=== PATIENT | male | born 1975 | race Caucasian/White ===

== ENCOUNTER 2016-06-02 21:28 | Observation (INO) | payer MEDICARE ==
[~2016-06-02] VITALS: Ht 157.5 cm; Wt 86.7 kg
[~2016-06-02 21:28] MED LIST: ASPI-496 PO; ATOR40TA78 PO; CARV25TA12 PO; DIGO125T10 PO; DOFE500C PO; FURO-93 PO; HYDR-3144 PO; LISI-170 PO; SACU1TAB PO; SPIR25TA3 PO; SPIR50TA2 PO; TRAM50TA2 PO; TRAZ100T15 PO; WARF10TA6 PO; [UNRECOGNIZED DRUG - OTHER] PO; oxygen INH
[2016-06-02] MEDS ORDERED: ONDANSETRON 2MG/ML, 2ML IVPush ONE (22:00)
[2016-06-02] MEDS ORDERED: ASPIRIN 81 MG TABLET CHEW PO ONE (22:00)
[2016-06-02] MEDS ORDERED: ONDANSETRON 2MG/ML, 2ML ONE (22:14)
[2016-06-02] MEDS ORDERED: MORPHINE SULFATE 4 MG/ML, 1ML ONE ×2 (22:14→23:38)
[2016-06-02] MEDS: MORPHINE SULFATE 4 MG/ML, 1ML IVPush PRN ×2 (22:24→23:42)
[2016-06-02 22:43] LABS: BLOOD UREA NITROGEN 13 mg/dL (7-18)
[2016-06-02 22:49] LABS: IS PT STATUS REG ER OR PRE ER? YES
[2016-06-02 23:16] LABS: HEMOGLOBIN 11.8 g/dL (13.7-18.0)
[2016-06-02] MEDS ORDERED: SODIUM CHLORIDE 0.9% 1,000 ML IV ONE (23:33)
[2016-06-03] MEDS ORDERED: ONDANSETRON 2MG/ML, 2ML IVPush PRN
[2016-06-03] MEDS ORDERED: MORPHINE SULFATE 4 MG/ML, 1ML IVPush PRN
[2016-06-03] MEDS ORDERED: DIGOXIN 0.125 MG TABLET PO SCH (00:30)
[2016-06-03] MEDS ORDERED: BISACODYL 10 MG SUPP PR PRN (00:30)
[2016-06-03] MEDS ORDERED: POLYETHYLENE GLYCOL 17 GM PACKET PO PRN (00:30)
[2016-06-03] MEDS ORDERED: TRAZODONE 50MG TABLET PO PRN (00:30)
[2016-06-03] MEDS ORDERED: NICOTINE 14MG/24 HR PATCH.TD24 TD SCH (00:30)
[2016-06-03] MEDS ORDERED: DOCUSATE 100 MG CAPSULE PO PRN (00:30)
[2016-06-03] MEDS ORDERED: ATORVASTATIN 40 MG TABLET PO SCH ×2 (00:30→21:00)
[2016-06-03] MEDS ORDERED: LABETALOL 5MG/ML, 20ML IV PRN (00:30)
[2016-06-03 00:42] VITALS: BP 124/78
[2016-06-03] MEDS ORDERED: TRAZ100T15 PO (01:23)
[2016-06-03 02:28] VITALS: BP 124/78
[2016-06-03] MEDS: ENOXAPARIN 80 MG/0.8 ML SQ SCH ×2 (02:42→15:37)
[2016-06-03 06:44] LABS: IS PT STATUS REG ER OR PRE ER? NO
[2016-06-03 08:25] VITALS: BP 103/68
[2016-06-03] MEDS ORDERED: ASPIRIN 81 MG TABLET CHEW PO SCH (09:00)
[2016-06-03] MEDS ORDERED: SPIRONOLACTONE 25 MG TABLET PO SCH (09:00)
[2016-06-03] MEDS ORDERED: SACUBITRIL HOMEMEDPO SCH (09:00)
[2016-06-03] MEDS ORDERED: VALSARTAN HOMEMEDPO SCH (09:00)
[2016-06-03] MEDS ORDERED: FUROSEMIDE 40 MG TABLET PO SCH (09:00)
[2016-06-03] MEDS ORDERED: DOFETILIDE 125 MCG CAPSULE PO SCH (09:00)
[2016-06-03] MEDS ORDERED: CARVEDILOL 3.125 MG TABLET PO SCH (09:00)
[2016-06-03] MEDS ORDERED: LISINOPRIL 20 MG TABLET PO SCH (09:00)
[2016-06-03] MEDS ORDERED: REGADENOSON 0.4 MG/5 ML SYRINGE ONE ×2 (09:21→09:23)
[2016-06-03 11:21] LABS: IS PT STATUS REG ER OR PRE ER? NO
[2016-06-03] MEDS ORDERED: ACETAMINOPHEN 325 MG TABLET ONE (13:27)
[2016-06-03 16:13] VITALS: BP 108/72
[2016-06-03] MEDS ORDERED: ENOX80SY5 SQ (16:33)
[2016-06-03] MEDS ORDERED: WARFARIN 5 MG TABLET PO-COUM SCH (18:00)
== END 2016-06-03 18:04 | disposition home or self-care (01) ==
LOC: ED 22:44 → EDIP 23:33 → INTOOBSV 23:33 → 5SO 06-03 00:29
PROVIDERS: ADMIT Internal Medicine; ATTEND Internal Medicine
DX: R07.89 Other chest pain (principal); I11.0 Hypertensive heart disease with heart failure; I50.42 Chronic combined systolic (congestive) and diastolic (congestive) heart failure; I25.10 Atherosclerotic heart disease of native coronary artery without angina pectoris; I34.0 Nonrheumatic mitral (valve) insufficiency; E78.5 Hyperlipidemia, unspecified; E88.09 Other disorders of plasma-protein metabolism, not elsewhere classified; Z72.0 Tobacco use; Z86.711 Personal history of pulmonary embolism; Z91.14 Patient's other noncompliance with medication regimen; Z76.5 Malingerer [conscious simulation]; Z95.2 Presence of prosthetic heart valve
CPT/HCPCS: 36415; 71010; 78452; 80048; 80162; 82040; 83880; 84484; 85025; 85379; 85610; 93005; 93017; 96372; 96374; 96375; 96376; 99285; A9502; C9898; G0378; J1650; J2405; J2785

== ENCOUNTER 2017-01-03 22:04 | Inpatient (IN) | payer MEDICARE ==
[~2017-01-03] VITALS: Ht 157.5 cm; Wt 86.7 kg
[~2017-01-03 22:04] MED LIST changes: +ENOX80SY5 SQ; -HYDR-3144 PO; +HYDR-3245 PO
[2017-01-03] MEDS ORDERED: BUME1TAB21 PO (22:33)
[2017-01-03] MEDS ORDERED: ASPIRIN 81 MG TABLET CHEW PO ONE (23:00)
[2017-01-03] MEDS ORDERED: ONDANSETRON 2MG/ML, 2ML IVPush ONE (23:00)
[2017-01-03] MEDS ORDERED: morphine SULFATE 10 MG/ML, 1ML ONE ×2 (23:01→23:56)
[2017-01-03] MEDS ORDERED: ASPIRIN 81 MG TABLET CHEW ONE (23:01)
[2017-01-03] MEDS ORDERED: ONDANSETRON 2MG/ML, 2ML ONE (23:01)
[2017-01-03 23:08] LABS: HEMATOCRIT 36.2 % (39.2-51.8); WHITE BLOOD COUNT 7.4 x10^3/uL (3.4-10)
[2017-01-03] MEDS: MORPHINE SULFATE 4 MG/ML, 1ML IVPush PRN (23:10)
[2017-01-03 23:14] LABS: BLOOD UREA NITROGEN 25 mg/dL (7-18)
[2017-01-03 23:32] LABS: IS PT STATUS REG ER OR PRE ER? YES
[2017-01-04] MEDS: MORPHINE SULFATE 4 MG/ML, 1ML IVPush PRN (00:05)
[2017-01-04] MEDS ORDERED: ONDANSETRON 2MG/ML, 2ML IVPush PRN ×2 (00:30→01:30)
[2017-01-04] MEDS ORDERED: MORPHINE SULFATE 4 MG/ML, 1ML IVPush PRN (00:30)
[2017-01-04] MEDS ORDERED: NS + 20MEQ KCL 1,000 ML IV SCH (01:25)
[2017-01-04] MEDS ORDERED: POLYETHYLENE GLYCOL 17 GM PACKET PO PRN (01:30)
[2017-01-04] MEDS ORDERED: ACETAMINOPHEN 325 MG TABLET PO PRN (01:30)
[2017-01-04] MEDS ORDERED: DOCUSATE 100 MG CAPSULE PO PRN (01:30)
[2017-01-04] MEDS ORDERED: morphine SULFATE 10 MG/ML, 1ML ONE (01:40)
[2017-01-04] MEDS: morphine SULFATE 10 MG/ML, 1ML IVPush PRN ×4 (01:43→10:15)
[2017-01-04 02:07] VITALS: BP 138/84
[2017-01-04 02:22] VITALS: BP 130/74
[2017-01-04] MEDS: OXYcodone IR 5MG TABLET PO PRN ×4 (02:47→16:22)
[2017-01-04 06:19] LABS: IS PT STATUS REG ER OR PRE ER? NO
[2017-01-04 07:45] VITALS: BP 135/76
[2017-01-04] MEDS ORDERED: LISINOPRIL 20 MG TABLET PO SCH (09:00)
[2017-01-04] MEDS ORDERED: DOFETILIDE 125 MCG CAPSULE PO SCH (09:00)
[2017-01-04] MEDS ORDERED: BUMETANIDE 1 MG TABLET PO SCH (09:00)
[2017-01-04] MEDS ORDERED: CARVEDILOL 3.125 MG TABLET PO SCH (09:00)
[2017-01-04] MEDS ORDERED: SPIRONOLACTONE 25 MG TABLET PO SCH (09:00)
[2017-01-04] MEDS ORDERED: FUROSEMIDE 40 MG/4 ML IV ONE (10:30)
[2017-01-04] MEDS ORDERED: ASPI-496 PO (11:27)
[2017-01-04 13:46] VITALS: BP 117/71
[2017-01-04] MEDS ORDERED: WARFARIN 5 MG TABLET PO-COUM SCH (18:00)
[2017-01-04] MEDS ORDERED: DIGOXIN 0.125 MG TABLET PO SCH (21:00)
[2017-01-04] MEDS ORDERED: ATORVASTATIN 40 MG TABLET PO SCH (21:00)
== END 2017-01-04 18:02 | disposition home or self-care (01) | DRG 302 ==
LOC: ED 01-04 00:16 → EDIP 01-04 00:19 → 5SO 01-04 02:06
PROVIDERS: ADMIT Family Medicine; ATTEND Family Medicine
DX: I25.10 Atherosclerotic heart disease of native coronary artery without angina pectoris (principal); I50.23 Acute on chronic systolic (congestive) heart failure; J96.10 Chronic respiratory failure, unspecified whether with hypoxia or hypercapnia; D68.69 Other thrombophilia; E78.5 Hyperlipidemia, unspecified; I25.2 Old myocardial infarction; Z76.5 Malingerer [conscious simulation]; Z72.0 Tobacco use; Z79.01 Long term (current) use of anticoagulants; Z79.82 Long term (current) use of aspirin; Z86.711 Personal history of pulmonary embolism; Z95.810 Presence of automatic (implantable) cardiac defibrillator; Z95.1 Presence of aortocoronary bypass graft; Z95.2 Presence of prosthetic heart valve; Z99.81 Dependence on supplemental oxygen
CPT/HCPCS: 36415; 71010; 80048; 80061; 82040; 83880; 84484; 85025; 85610; 93005; 96374; 96375; 96376; J1940; J2405; J3480; J2270

== ENCOUNTER 2018-09-15 02:49 | Emergency (ER) | payer MEDICARE ==
[~2018-09-15] VITALS: Ht 157.5 cm; Wt 79.2 kg
[~2018-09-15 02:49] MED LIST changes: +ATOR-2 PO; +BUME1TAB21 PO; +CARV6.2512 PO; +ENOX80SY4 SQ; +FURO40TA6 PO; +LISI5TAB7 PO; +SACU1TAB7 PO; -SPIR25TA3 PO; +SPIR25TA5 PO; -SPIR50TA2 PO; +SPIR50TA4 PO; +TRAZ-137 PO; -TRAZ100T15 PO; +TRAZ50TA66 PO; +WARF10TA PO; +WARF10TA43 PO; -WARF10TA6 PO
[2018-09-15 02:53] VITALS: BP 95/61
[2018-09-15] MEDS ORDERED: LIDOCAINE-MPF 1%, 5ML ONE (03:11)
[2018-09-15] MEDS ORDERED: BUPIVACAINE 0.25% ONE (03:11)
--- NOTE | 2018-09-15 03:16 | NUR ---
PT STATES THAT HE HAS A CRACKED MOLAR IN THE BACK OF HIS MOUTH THAT IS CAUSING PAINFUL EATING AND SWALLOWING. MONITORS APPLIED, SIDERAILS UP X2, CALL LIGHT WITHIN REACH
[2018-09-15] MEDS ORDERED: ASCO500C2 PO (03:22)
[2018-09-15] MEDS ORDERED: TORS10TA4 PO (03:22)
[2018-09-15] MEDS ORDERED: LIDOCAINE-MPF 1%, 5ML INFIL ONE (03:30)
[2018-09-15] MEDS ORDERED: BUPIVACAINE 0.25% INFIL ONE (03:30)
== END 2018-09-15 03:47 | disposition home or self-care (01) ==
LOC: ED 03:39
DX: K08.89 Other specified disorders of teeth and supporting structures (principal); H91.3 Deaf nonspeaking, not elsewhere classified; I11.0 Hypertensive heart disease with heart failure; I50.9 Heart failure, unspecified; I25.10 Atherosclerotic heart disease of native coronary artery without angina pectoris; I11.9 Hypertensive heart disease without heart failure; Z86.73 Personal history of transient ischemic attack (TIA), and cerebral infarction without residual deficits
CPT/HCPCS: 64400; 99283; 99284

== ENCOUNTER 2018-10-09 18:16 | Inpatient (IN) | payer MEDICARE ==
[~2018-10-09] VITALS: Ht 157.5 cm; Wt 91.5 kg
[2018-10-10 19:54] VITALS: BP 103/59
== END 2018-10-10 23:31 | disposition left against medical advice (07) | DRG 871 ==
LOC: ED 19:35 → EDIP 19:40 → ED 20:10 → 5SO 20:54
PROVIDERS: ADMIT Internal Medicine; ATTEND Internal Medicine
DX: A41.9 Sepsis, unspecified organism (principal); J15.9 Unspecified bacterial pneumonia; I21.4 Non-ST elevation (NSTEMI) myocardial infarction; J96.01 Acute respiratory failure with hypoxia; I50.23 Acute on chronic systolic (congestive) heart failure; G93.41 Metabolic encephalopathy; N17.0 Acute kidney failure with tubular necrosis; E87.1 Hypo-osmolality and hyponatremia; I13.0 Hypertensive heart and chronic kidney disease with heart failure and stage 1 through stage 4 chronic kidney disease, or unspecified chronic kidney disease; T40.2X1A Poisoning by other opioids, accidental (unintentional), initial encounter; Z53.21 Procedure and treatment not carried out due to patient leaving prior to being seen by health care provider; D64.9 Anemia, unspecified; E78.5 Hyperlipidemia, unspecified; E87.5 Hyperkalemia; E87.6 Hypokalemia; H91.90 Unspecified hearing loss, unspecified ear; I27.20 Pulmonary hypertension, unspecified; I25.10 Atherosclerotic heart disease of native coronary artery without angina pectoris; N18.3 Chronic kidney disease, stage 3 (moderate); Y92.89 Other specified places as the place of occurrence of the external cause; Z86.711 Personal history of pulmonary embolism; Z86.73 Personal history of transient ischemic attack (TIA), and cerebral infarction without residual deficits; Z87.891 Personal history of nicotine dependence; Z95.2 Presence of prosthetic heart valve; Z93.0 Tracheostomy status
CPT/HCPCS: 36415; 71045; 76770; 80053; 80307; 81003; 82436; 82570; 83605; 83880; 84133; 84145; 84300; 84484; 85025; 85610; 85730; 87040; 87181; 93005; G0378; J0456; J0696; J2405; J3370; J7030; J7050

== ENCOUNTER 2018-10-11 13:43 | Inpatient (IN) | payer MEDICARE, OTHER ==
[~2018-10-11] VITALS: Ht 165.1 cm; Wt 87.8 kg
[2018-10-23 15:05] VITALS: BP 133/76
== END 2018-10-23 18:27 | disposition home or self-care (01) | DRG 207 ==
LOC: ED 15:00 → EDIP 15:51 → ICU 18:52 → CCU 10-14 17:19 → 5SO 10-18 17:00 → 4WST 10-20 12:05
PROVIDERS: ADMIT Internal Medicine; ATTEND Internal Medicine
PROC: 5A1955Z Respiratory Ventilation, Greater than 96 Consecutive Hours (ICD-10-PCS; principal; 2018-10-11)
PROC: 0BH17EZ Insertion of Endotracheal Airway into Trachea, Via Natural or Artificial Opening (ICD-10-PCS; 2018-10-11)
PROC: 02HV33Z Insertion of Infusion Device into Superior Vena Cava, Percutaneous Approach (ICD-10-PCS; 2018-10-11)
PROC: B548ZZA Ultrasonography of Superior Vena Cava, Guidance (ICD-10-PCS; 2018-10-11)
DX: J96.21 Acute and chronic respiratory failure with hypoxia (principal); J69.0 Pneumonitis due to inhalation of food and vomit; I50.23 Acute on chronic systolic (congestive) heart failure; G92 Toxic encephalopathy; E43 Unspecified severe protein-calorie malnutrition; L03.115 Cellulitis of right lower limb; D68.69 Other thrombophilia; I13.0 Hypertensive heart and chronic kidney disease with heart failure and stage 1 through stage 4 chronic kidney disease, or unspecified chronic kidney disease; L03.314 Cellulitis of groin; G89.29 Other chronic pain; E78.5 Hyperlipidemia, unspecified; Z68.32 Body mass index [BMI] 32.0-32.9, adult; D63.1 Anemia in chronic kidney disease; G25.3 Myoclonus; H91.90 Unspecified hearing loss, unspecified ear; I07.1 Rheumatic tricuspid insufficiency; I25.10 Atherosclerotic heart disease of native coronary artery without angina pectoris; I25.2 Old myocardial infarction; I25.5 Ischemic cardiomyopathy; I27.20 Pulmonary hypertension, unspecified; N18.2 Chronic kidney disease, stage 2 (mild); T40.605A Adverse effect of unspecified narcotics, initial encounter; Z72.0 Tobacco use; Z79.01 Long term (current) use of anticoagulants; Z86.711 Personal history of pulmonary embolism; Z86.73 Personal history of transient ischemic attack (TIA), and cerebral infarction without residual deficits; Z91.19 Patient's noncompliance with other medical treatment and regimen; Z95.2 Presence of prosthetic heart valve; Z95.810 Presence of automatic (implantable) cardiac defibrillator; Z99.81 Dependence on supplemental oxygen
CPT/HCPCS: 31500; 36415; 36556; 36600; 70450; 71045; 76857; 80048; 80053; 80202; 80307; 81003; 82140; 82272; 82607; 82728; 82803; 82962; 83540; 83550; 83605; 83735; 83880; 84100; 84145; 84439; 84443; 84478; 84484; 85014; 85018; 85025; 85520; 85610; 87040; 87070; 87081; 87205; 93005; 93970; 94002; 94003; 94640; 96365; C8929; G0378; J1170; J1644; J1650; J1940; J2250; J2405; J2543; J2704; J3010; J3370; J7620; Q9957; J0330; J1630; J2060; J2270; J3490; J7030; J7040; J7050

== ENCOUNTER 2019-10-03 23:28 | Emergency (ER) | payer MEDICARE ==
[~2019-10-03] VITALS: Ht 157.5 cm; Wt 86.1 kg
[~2019-10-03 23:28] MED LIST changes: +AMOX-367 PO; +ASCO500C2 PO; +CYAN500T54 PO; +CYCL-259 PO; +ECHI400C12 PO; +FURO20TA3 PO; +OXYC10TA6 PO; +OXYC5TAB3 PO; +SILD100T PO; +TORS10TA4 PO; +TORS20TA PO; -TRAZ-137 PO; +TRAZ-175 PO
[2019-10-03 23:36] VITALS: BP 163/84
--- NOTE | 2019-10-04 01:23 | NUR ---
pt ankle wrapped with erin wrap. pt d/c with d/c and work restriction instructions. pt wheeled to lobby for d/c home and verbalizes understanding of f/u instructions.
== END 2019-10-04 01:26 | disposition home or self-care (01) ==
LOC: ED 10-04 00:40
DX: S93.402A Sprain of unspecified ligament of left ankle, initial encounter (principal); I11.0 Hypertensive heart disease with heart failure; I50.9 Heart failure, unspecified; I25.2 Old myocardial infarction; Z86.73 Personal history of transient ischemic attack (TIA), and cerebral infarction without residual deficits; X58.XXXA Exposure to other specified factors, initial encounter; Y93.89 Activity, other specified; Y92.098 Other place in other non-institutional residence as the place of occurrence of the external cause; Y99.8 Other external cause status
CPT/HCPCS: 99283

== ENCOUNTER 2020-03-12 23:16 | Inpatient (IN) | payer MEDICARE, OTHER ==
[~2020-03-12] VITALS: Ht 160 cm; Wt 86.7 kg
[~2020-03-12 23:16] MED LIST changes: -CYAN500T54 PO; +CYAN500T7 PO
--- NOTE | 2020-03-12 23:35 | NUR ---
PT BIB VIA POV. PT STATES HE IS HERE FOR FLUID OVERLOAD. PT COMPLAINING OF LEG SWELLING AND SOB. PT ON MONITORING, RESTING IN GURNEY, EKG DONE. WILL CONTINUE TO MONITOR.
[2020-03-13 00:30] LABS: INTERNATIONAL NORMALIZED RATIO 1.08 (0.93-1.1); PROTHROMBIN TIME 11.4 Seconds (9.6-11.5)
[2020-03-13 00:32] LABS: ALBUMIN 3.4 g/dL (3.4-5.0); ANION GAP 4 mmol/L (5-15); CALCIUM 8.6 mg/dL (8.5-10.1); CHLORIDE 108 mmol/L (98-107); CREATININE 1.23 mg/dL (0.7-1.3)
[2020-03-13 00:36] LABS: TROPONIN I < 0.015 ng/mL (0.000-0.045)
--- NOTE | 2020-03-13 00:40 | NUR ---
PT STATES HE IS UNABLE TO PROVIDE A URINE SAMPLE AT THIS TIME.
[2020-03-13 00:47] LABS: BASOPHILS % (AUTO) 1 % (0-1); EOSINOPHILS % (AUTO) 5 % (1-7); LYMPHOCYTES % (AUTO) 13 % (22-44); MEAN CORPUSCULAR HEMOGLOBIN 26.5 pg (27.5-34.5); MEAN CORPUSCULAR HGB CONC 32.9 g/dL (33.2-36.2); MEAN PLATELET VOLUME 9.7 fL (7.4-10.4); MONOCYTES % (AUTO) 9 % (2-9); NEUTROPHILS % (AUTO) 73 % (42-75); PLATELET COUNT 165 x10^3/uL (130-400); RED BLOOD COUNT 4.39 x10^6/uL (4.38-5.82); RED CELL DISTRIBUTION WIDTH 15.7 % (9.4-14.8)
[2020-03-13 00:48] LABS: MD NO
[2020-03-13] MEDS ORDERED: FUROSEMIDE 40 MG/4 ML IVPush ONE (02:00)
[2020-03-13] MEDS ORDERED: WARFARIN 10 MG TABLET PO-COUM ONE (02:00)
--- NOTE | 2020-03-13 02:00 | NUR ---
REPORT FROM JOSE A CLARK
--- NOTE | 2020-03-13 02:01 | NUR ---
REPORT GIVEN TO JOSE A ROCK.
--- NOTE | 2020-03-13 02:15 | NUR ---
DIFFICULTY ESTABLISHING IV. I TRIED 3 TIME, ANOTHER NURSE TRIED ANOTHER 3 TIMES.
[2020-03-13] MEDS ORDERED: SODIUM CHLORIDE FLUSH 10ML SYR IVF PRN (02:30)
[2020-03-13] MEDS ORDERED: WARFARIN BIOPROSTHETIC VALVE PROTOCOL 2-3 XX PRN ×2 (03:00→09:00)
[2020-03-13] MEDS ORDERED: ACETAMINOPHEN 325 MG TABLET PO PRN (03:00)
[2020-03-13] MEDS ORDERED: GUAIFENESIN/DM 200-20MG, 10ML UDC PO PRN (03:00)
[2020-03-13] MEDS ORDERED: DOCUSATE 100 MG CAPSULE PO PRN (03:00)
--- NOTE | 2020-03-13 03:34 | NUR ---
REPORT TO JOSE A MAN
--- NOTE | 2020-03-13 03:35 | NUR ---
RADHA IN TO ATTEMPT ULTRASOUND IV.
[2020-03-13] MEDS ORDERED: FUROSEMIDE 40 MG/4 ML ONE (03:37)
--- NOTE | 2020-03-13 03:59 | NUR ---
ULTRASOUND IV PLACED IN THE LEFT UPPER ARM
[2020-03-13 05:17] VITALS: BP 128/64
[2020-03-13 06:30] LABS: AMPHETAMINE SCREEN, URINE Positive (Negative); BARBITURATE SCREEN, URINE Negative (Negative); BENZODIAZEPINE SCREEN, URINE Negative (Negative); CANNABINOID SCREEN, URINE Negative (Negative); COCAINE SCREEN, URINE Negative (Negative); METHADONE SCREEN, URINE Negative (Negative); OPIATE SCREEN, URINE Negative (Negative)
[2020-03-13 07:27] LABS: INTERNATIONAL NORMALIZED RATIO 1.27 (0.93-1.1); PROTHROMBIN TIME 13.4 Seconds (9.6-11.5)
[2020-03-13] MEDS: SPIRONOLACTONE 25 MG TABLET PO SCH ×2 (07:51→21:28)
[2020-03-13] MEDS: SACUBITRIL/VALSARTAN 24MG-26MG TAB PO SCH ×2 (07:51→21:28)
[2020-03-13] MEDS: FUROSEMIDE 40 MG/4 ML IVPush SCH ×3 (07:52→21:27)
[2020-03-13 08:27] VITALS: BP 136/76
[2020-03-13] MEDS: HYDROcodone/APAP 5/325 TABLET PO PRN ×3 (08:56→23:42)
[2020-03-13] MEDS ORDERED: POTASSIUM CHLORIDE 20 MEQ TAB.ER.PRT PO SCH (09:00)
[2020-03-13] MEDS: POTASSIUM CHLORIDE 20 MEQ TAB.ER.PRT PO SCH ×2 (09:47→21:28)
[2020-03-13] MEDS ORDERED: ENOXAPARIN 60 MG/0.6 ML SQ SCH (10:00)
[2020-03-13 13:09] VITALS: BP 116/69
[2020-03-13] MEDS ORDERED: ENOXAPARIN 100 MG/ML SQ SCH (17:00)
[2020-03-13] MEDS ORDERED: WARFARIN 2.5 MG TABLET PO-COUM ONE (18:00)
[2020-03-13 19:42] VITALS: BP 134/80
[2020-03-13 19:46] VITALS: BP 126/66
[2020-03-14 01:09] VITALS: BP 130/78
[2020-03-14 06:49] LABS: INTERNATIONAL NORMALIZED RATIO 4.57 (0.93-1.1)
[2020-03-14 06:53] LABS: ALANINE AMINOTRANSFERASE 36 U/L (12-78); ALBUMIN 3.4 g/dL (3.4-5.0); ANION GAP 5 mmol/L (5-15); CALCIUM 8.6 mg/dL (8.5-10.1); CHLORIDE 103 mmol/L (98-107); CHOLESTEROL, TOTAL 117 mg/dL (140-239); IRON LEVEL 36 mcg/dL (65-175)
[2020-03-14 06:54] LABS: PROTHROMBIN TIME 47.7 Seconds (9.6-11.5)
[2020-03-14 06:55] VITALS: BP 117/68
[2020-03-14 06:58] LABS: BASOPHILS % (AUTO) 1 % (0-1); EOSINOPHILS % (AUTO) 5 % (1-7); LYMPHOCYTES % (AUTO) 16 % (22-44); MEAN CORPUSCULAR HEMOGLOBIN 26.4 pg (27.5-34.5); MEAN CORPUSCULAR HGB CONC 32.8 g/dL (33.2-36.2); MEAN PLATELET VOLUME 9.5 fL (7.4-10.4); MONOCYTES % (AUTO) 7 % (2-9); NEUTROPHILS % (AUTO) 72 % (42-75); PLATELET COUNT 234 x10^3/uL (130-400); RED BLOOD COUNT 4.88 x10^6/uL (4.38-5.82); RED CELL DISTRIBUTION WIDTH 15.7 % (9.4-14.8)
[2020-03-14 07:00] LABS: MD NO
[2020-03-14 07:01] LABS: % IRON SATURATION 10 % (20-55); ALKALINE PHOSPHATASE 106 U/L (45-117); BILIRUBIN,TOTAL 0.6 mg/dL (0.2-1.0); CHOL/HDL RATIO 3.3; HDL CHOL % 31 % (26-37); HDL CHOLESTEROL (DIRECT) 36 mg/dL (40-60); LDL CHOLESTEROL,CALCULATED 60 mg/dL (54-169); LDL/HDL RATIO 1.7 (0.5-3.0); TOTAL IRON BINDING CAPACITY 349 mcg/dL (250-450); TOTAL PROTEIN 7.7 g/dL (6.4-8.2); TRIGLYCERIDES 107 mg/dL (50-200); VLDL CHOLESTEROL 21 mg/dL (0-25)
[2020-03-14] MEDS: SACUBITRIL/VALSARTAN 24MG-26MG TAB PO SCH ×2 (09:53→21:41)
[2020-03-14] MEDS: POTASSIUM CHLORIDE 20 MEQ TAB.ER.PRT PO SCH ×2 (09:53→21:41)
[2020-03-14] MEDS: SPIRONOLACTONE 25 MG TABLET PO SCH ×2 (09:53→21:41)
[2020-03-14] MEDS: FUROSEMIDE 40 MG/4 ML IVPush SCH ×2 (09:53→21:40)
[2020-03-14] MEDS: HYDROcodone/APAP 5/325 TABLET PO PRN ×3 (09:54→21:47)
[2020-03-14] MEDS ORDERED: HOLD WARFARIN MC PRN ×2 (13:00→13:11)
[2020-03-14 16:16] VITALS: BP 98/64
[2020-03-14 17:09] LABS: PROTHROMBIN TIME 60.2 Seconds (9.6-11.5)
[2020-03-14 17:10] LABS: INTERNATIONAL NORMALIZED RATIO 5.78 (0.93-1.1)
[2020-03-14] MEDS ORDERED: PHYTONADIONE 5 MG TABLET PO ONE (17:30)
[2020-03-14] MEDS ORDERED: FUROSEMIDE 40 MG/4 ML IVPush SCH (21:00)
[2020-03-14] MEDS ORDERED: SACUBITRIL/VALSARTAN 24MG-26MG TAB PO SCH (21:00)
[2020-03-14] MEDS ORDERED: SPIRONOLACTONE 25 MG TABLET PO SCH (21:00)
[2020-03-14 21:17] VITALS: BP 124/77
[2020-03-15] MEDS: HYDROcodone/APAP 5/325 TABLET PO PRN ×3 (02:37→20:43)
[2020-03-15 02:43] VITALS: BP 127/75
[2020-03-15 07:02] LABS: INTERNATIONAL NORMALIZED RATIO 3.16 (0.93-1.1); PROTHROMBIN TIME 33.1 Seconds (9.6-11.5)
[2020-03-15 07:09] LABS: ANION GAP 4 mmol/L (5-15); CALCIUM 8.9 mg/dL (8.5-10.1); CHLORIDE 105 mmol/L (98-107); CREATININE 1.21 mg/dL (0.7-1.3)
[2020-03-15 07:15] LABS: BASOPHILS % (AUTO) 1 % (0-1); EOSINOPHILS % (AUTO) 7 % (1-7); LYMPHOCYTES % (AUTO) 18 % (22-44); MEAN CORPUSCULAR HEMOGLOBIN 26.6 pg (27.5-34.5); MEAN CORPUSCULAR HGB CONC 32.5 g/dL (33.2-36.2); MONOCYTES % (AUTO) 10 % (2-9); NEUTROPHILS % (AUTO) 65 % (42-75); PLATELET COUNT 218 x10^3/uL (130-400); RED BLOOD COUNT 4.97 x10^6/uL (4.38-5.82); RED CELL DISTRIBUTION WIDTH 15.5 % (9.4-14.8)
[2020-03-15 07:16] LABS: MD NO
[2020-03-15 07:17] VITALS: BP 141/77
[2020-03-15 10:21] VITALS: BP 120/71
[2020-03-15] MEDS: SACUBITRIL/VALSARTAN 24MG-26MG TAB PO SCH ×2 (10:23→20:41)
[2020-03-15] MEDS: SPIRONOLACTONE 25 MG TABLET PO SCH ×2 (10:23→20:44)
[2020-03-15] MEDS: POTASSIUM CHLORIDE 20 MEQ TAB.ER.PRT PO SCH ×2 (10:23→20:41)
[2020-03-15] MEDS: FUROSEMIDE 40 MG/4 ML IVPush SCH ×2 (10:23→20:44)
[2020-03-15 12:46] VITALS: BP 136/89
[2020-03-15 14:54] LABS: INTERNATIONAL NORMALIZED RATIO 2.06 (0.93-1.1); PROTHROMBIN TIME 21.7 Seconds (9.6-11.5)
[2020-03-15] MEDS ORDERED: WARFARIN 5 MG TABLET PO-COUM ONE (18:00)
[2020-03-15 20:19] VITALS: BP 102/68
[2020-03-15] MEDS: GABAPENTIN 100 MG CAPSULE PO SCH (20:41)
[2020-03-16 01:37] VITALS: BP 110/68
[2020-03-16 07:05] LABS: INTERNATIONAL NORMALIZED RATIO 2.41 (0.93-1.1); PROTHROMBIN TIME 25.3 Seconds (9.6-11.5)
[2020-03-16 07:31] VITALS: BP 91/54
[2020-03-16] MEDS: POTASSIUM CHLORIDE 20 MEQ TAB.ER.PRT PO SCH ×2 (09:00→09:37)
[2020-03-16] MEDS ORDERED: WARFARIN MECH. VALVE PROTOCOL 2.5 to 3.5 XX SCH (09:00)
[2020-03-16] MEDS: FUROSEMIDE 40 MG/4 ML IVPush SCH ×2 (09:00→09:36)
[2020-03-16] MEDS: GABAPENTIN 100 MG CAPSULE PO SCH (09:36)
[2020-03-16] MEDS: SPIRONOLACTONE 25 MG TABLET PO SCH (09:37)
[2020-03-16] MEDS: SACUBITRIL/VALSARTAN 24MG-26MG TAB PO SCH (09:37)
[2020-03-16] MEDS: HYDROcodone/APAP 5/325 TABLET PO PRN (09:39)
== END 2020-03-16 13:51 | disposition home or self-care (01) | DRG 291 ==
LOC: ED 23:50 → EDIP 03-13 02:33 → 5SO 03-13 04:12
PROVIDERS: ADMIT Family Medicine; ATTEND Internal Medicine
DX: I13.0 Hypertensive heart and chronic kidney disease with heart failure and stage 1 through stage 4 chronic kidney disease, or unspecified chronic kidney disease (principal); I50.43 Acute on chronic combined systolic (congestive) and diastolic (congestive) heart failure; J96.11 Chronic respiratory failure with hypoxia; D68.69 Other thrombophilia; I42.8 Other cardiomyopathies; N18.2 Chronic kidney disease, stage 2 (mild); D64.9 Anemia, unspecified; E78.5 Hyperlipidemia, unspecified; I25.2 Old myocardial infarction; Z95.2 Presence of prosthetic heart valve; Z79.899 Other long term (current) drug therapy; Z79.891 Long term (current) use of opiate analgesic; Z79.01 Long term (current) use of anticoagulants; Z95.810 Presence of automatic (implantable) cardiac defibrillator; Z93.0 Tracheostomy status; Z82.61 Family history of arthritis
CPT/HCPCS: 36415; 71045; 80048; 80053; 80061; 80307; 82040; 83540; 83550; 83880; 84443; 84484; 85025; 85610; 85730; 93005; 93306; 93922; 93970; G0378; J1650; J1940